=== PATIENT | male | born 1980 | race Caucasian/White ===

== ENCOUNTER 2016-08-10 12:55 | Emergency (ER) | payer MEDICAID ==
[~2016-08-10] VITALS: Ht 190.5 cm; Wt 172.8 kg
[2016-08-10 15:11] LABS: BASOPHIL % 0.6 % (0-2); PLATELET COUNT 263 x10^3mcL (130-400)
[2016-08-10 15:14] LABS: RED CELL DISTRIBUTION WIDTH 14.8 % (11.5-14.5)
[2016-08-10 15:23] LABS: CALCIUM 9.1 mg/dL (8.5-10.1); CARBON DIOXIDE 28.2 mmol/L (21-32); CHLORIDE SERUM 101 mmol/L (98-107); CREATININE SERUM 1.1 mg/dL (0.7-1.3); GFR1 > 60 mL/min; GLUCOSE SERUM 404 mg/dL (74-106); POTASSIUM SERUM 4.2 mmol/L (3.5-5.1); SODIUM SERUM 137 mmol/L (136-145)
[2016-08-10 15:24] LABS: ALKALINE PHOSPHATASE 114 U/L (46-116); ALT/SGPT 29 U/L (16-63); AST/SGOT 13 U/L (15-37); BILIRUBIN TOTAL 0.2 mg/dL (0.20-1.00); TOTAL PROTEIN, SERUM 6.9 g/dL (6.4-8.2)
[2016-08-10 15:26] LABS: ALBUMIN 3.2 g/dL (3.4-5.0)
[2016-08-10 16:35] VITALS: BP 111/71
== END 2016-08-10 16:50 | disposition short-term general hospital (02) ==
LOC: ED 12:55
PROVIDERS: Specialist
DX: M54.9 Dorsalgia, unspecified (principal); R32 Unspecified urinary incontinence; I10 Essential (primary) hypertension; E11.9 Type 2 diabetes mellitus without complications; E66.01 Morbid (severe) obesity due to excess calories
CPT/HCPCS: J1170; J1885; J2270; J2405; J2800; J3490

== ENCOUNTER 2019-06-15 21:53 | Inpatient (IN) | payer OTHER ==
[~2019-06-15] VITALS: Ht 193 cm; Wt 155.3 kg
[2019-06-15 22:01] VITALS: Ht 193 cm; Wt 155.3 kg
[2019-06-15 22:39] LABS: BASOPHIL % 0.5 % (0-2); PLATELET COUNT 272 x10^3mcL (130-400)
[2019-06-15 23:11] LABS: CALCIUM 8.9 mg/dL (8.5-10.1); CARBON DIOXIDE 30.4 mmol/L (21-32); CHLORIDE SERUM 101 mmol/L (98-107); CREATININE SERUM 1.1 mg/dL (0.7-1.3); GFR1 > 60 mL/min; GLUCOSE SERUM 302 mg/dL (74-106); POTASSIUM SERUM 4.1 mmol/L (3.5-5.1); SODIUM SERUM 138 mmol/L (136-145)
[2019-06-15 23:13] LABS: ALKALINE PHOSPHATASE 129 U/L (46-116); ALT/SGPT 30 U/L (16-63); AST/SGOT 19 U/L (15-37); BILIRUBIN TOTAL 0.3 mg/dL (0.20-1.00); TOTAL PROTEIN, SERUM 7.2 g/dL (6.4-8.2)
[2019-06-15 23:14] LABS: ALBUMIN 3.2 g/dL (3.4-5.0)
[2019-06-15 23:52] LABS: microscopic required? NO
[2019-06-15 23:59] LABS: urine erythrocyte NEGATIVE (NEGATIVE)
[2019-06-16] MEDS ORDERED: ZESTRIL2.5 MG (00:59)
[2019-06-16] MEDS ORDERED: METFORMIN500 M1 (00:59)
[2019-06-16 02:02] VITALS: BP 132/91
[2019-06-16 02:22] LABS: T3 TOTAL 1.74 ng/mL
[2019-06-16 02:29] LABS: CHOLESTEROL/HDL RATIO 4.2
[2019-06-16 02:38] LABS: FREE T4 1.07 ng/dL (0.76-1.46); FREE THYROXINE INDEX 3.3 ug/dL (1.4-4.5); T4(THYROXINE) 8.6 ug/dL (4.7-13.3)
[2019-06-16 05:27] VITALS: BP 137/87
[2019-06-16 06:14] LABS: AMPHETAMINE QUAL UR NONE DETECTED (See below)
[2019-06-16 06:25] LABS: BASOPHIL % 0.9 % (0-2); PLATELET COUNT 243 x10^3mcL (130-400); RED CELL DISTRIBUTION WIDTH 13.9 % (11.5-14.5)
[2019-06-16 06:57] LABS: CALCIUM 8.8 mg/dL (8.5-10.1); CARBON DIOXIDE 28.9 mmol/L (21-32); CHLORIDE SERUM 102 mmol/L (98-107); CREATININE SERUM 0.9 mg/dL (0.7-1.3); GFR1 > 60 mL/min; GLUCOSE SERUM 203 mg/dL (74-106); POTASSIUM SERUM 3.9 mmol/L (3.5-5.1); SODIUM SERUM 138 mmol/L (136-145)
[2019-06-16 08:17] VITALS: BP 112/66
[2019-06-16 13:29] VITALS: BP 131/83
[2019-06-16 16:23] VITALS: BP 104/55
[2019-06-16 20:51] VITALS: BP 120/69
[2019-06-17 05:43] VITALS: BP 106/65
[2019-06-17 08:08] VITALS: BP 125/87
[2019-06-17 12:14] VITALS: BP 118/88
[2019-06-17 15:01] VITALS: BP 118/88
== END 2019-06-17 17:25 | disposition home or self-care (01) | DRG 243 ==
LOC: ED 21:53 → MU 06-16 00:38 → DU 06-16 00:38 → MU 06-16 20:46
PROVIDERS: Emergency Medicine; ADMIT Family Medicine
DX: K21.9 Gastro-esophageal reflux disease without esophagitis (principal); I11.0 Hypertensive heart disease with heart failure; E44.0 Moderate protein-calorie malnutrition; E11.65 Type 2 diabetes mellitus with hyperglycemia; I50.9 Heart failure, unspecified; Z68.41 Body mass index [BMI] 40.0-44.9, adult; M94.0 Chondrocostal junction syndrome [Tietze]; Z79.84 Long term (current) use of oral hypoglycemic drugs; Z83.3 Family history of diabetes mellitus
CPT/HCPCS: 82962; 83880; 84439; G0378; J1815; J1885; J2270; J2405; J7030; Q0092

== ENCOUNTER 2019-06-26 14:33 | Emergency (ER) | payer OTHER ==
[~2019-06-26] VITALS: Ht 190.5 cm; Wt 155.6 kg
[~2019-06-26 14:33] MED LIST: METFORMIN500 M1; ZESTRIL2.5 MG
[2019-06-26 14:41] VITALS: BP 130/91; Ht 190.5 cm; Wt 155.6 kg
== END 2019-06-26 15:50 | disposition home or self-care (01) ==
LOC: ED 14:33
DX: Z76.0 Encounter for issue of repeat prescription (principal); I11.0 Hypertensive heart disease with heart failure; I50.9 Heart failure, unspecified; E11.9 Type 2 diabetes mellitus without complications; Z98.890 Other specified postprocedural states

== ENCOUNTER 2019-06-27 11:34 | Emergency (ER) | payer OTHER ==
[~2019-06-27] VITALS: Ht 182.9 cm; Wt 156.0 kg
[2019-06-27 11:44] VITALS: Ht 182.9 cm; Wt 156.0 kg
[2019-06-27 12:12] LABS: BASOPHIL % 0.2 % (0-2); PLATELET COUNT 247 x10^3mcL (130-400); RED CELL DISTRIBUTION WIDTH 13.8 % (11.5-14.5)
[2019-06-27 12:28] LABS: ALBUMIN 3.4 g/dL (3.4-5.0); ALKALINE PHOSPHATASE 116 U/L (46-116); ALT/SGPT 50 U/L (16-63); AST/SGOT 25 U/L (15-37); CALCIUM 9.1 mg/dL (8.5-10.1); CARBON DIOXIDE 23.7 mmol/L (21-32); CHLORIDE SERUM 99 mmol/L (98-107); CREATININE SERUM 1.1 mg/dL (0.7-1.3); GFR1 > 60 mL/min; GLUCOSE SERUM 450 mg/dL (74-106); POTASSIUM SERUM 3.7 mmol/L (3.5-5.1); SODIUM SERUM 135 mmol/L (136-145); TOTAL PROTEIN, SERUM 7.5 g/dL (6.4-8.2)
[2019-06-27 12:41] LABS: BILIRUBIN TOTAL 0.57 mg/dL (0.20-1.00)
[2019-06-27 13:27] LABS: AMPHETAMINE QUAL UR NONE DETECTED (See below)
[2019-06-27 16:39] VITALS: BP 131/88
== END 2019-06-27 16:35 | disposition home or self-care (01) ==
LOC: ED 11:34
PROVIDERS: Emergency Medicine
DX: F41.9 Anxiety disorder, unspecified (principal); M54.5 Low back pain; G89.29 Other chronic pain; E11.65 Type 2 diabetes mellitus with hyperglycemia; E11.9 Type 2 diabetes mellitus without complications
CPT/HCPCS: 82962; 83880; J1885; J7030; Q0092